=== PATIENT | female | born 1960 | race Caucasian/White ===

== ENCOUNTER 2019-05-01 11:56 | Outpatient (CLI) | payer BC ==
--- NOTE | 2019-05-01 18:12 | RAD ---
LEFT HIP TWO VIEWS: 05/01/19 There is the beginnings of some minor bony spurring in the joint, but it is quite minimal. The joint space is largely preserved. The articular surface are smooth. The adjacent pubic ring appears intact. No fracture was seen. IMPRESSION: Very minor degenerative changes. POS: HOME
--- NOTE | 2019-05-01 18:17 | RAD ---
RIGHT HIP TWO VIEWS: 05/01/19 No fracture or significant arthritic change is seen in this joint. The joint space is normal in width and the surrounding bones appear normal. IMPRESSION: No acute findings. POS: HOME
== END 2019-05-01 11:57 | disposition home or self-care (01) ==
LOC: BURRAD 11:56
PROVIDERS: ATTEND Clinical Nurse Specialist Medical-Surgical
DX: M25.552 Pain in left hip (principal); M25.551 Pain in right hip; M16.12 Unilateral primary osteoarthritis, left hip